=== PATIENT | male | born 1980 | race Caucasian/White ===

== ENCOUNTER → 2021-10-19 | Outpatient (CLI) | payer SELFPAY ==
[2021-10-19 14:40] LABS: Erythrocyte Sedimentation Rate 6 mm/hr (0-20)
[2021-10-19 15:01] LABS: Vitamin B12 763 pg/mL (211-911); Vitamin D,25 Hydroxy 28.6 ng/mL
[2021-10-19 15:17] LABS: ALB/GLOB Ratio 1.2 RATIO (0.9-2.4); AST(SGOT) 17 U/L (15-37); Alanine Aminotransfer ALT/SGPT 31 U/L (16-61); Albumin, Serum 4.3 g/dL (3.2-5.0); Alkaline Phosphatase 77 U/L (45-117); Anion Gap 5 (5-15); BUN 16 mg/dL (7-18); BUN/Creat Ratio 18.6 RATIO (10-20); CPK Total, Creatine Kinase 155 U/L (39-308); CRP < 2.90 mg/L (0.0-3.0); Chloride 107 mmol/L (98-107); Creatinine, Serum 0.86 mg/dL (0.70-1.30); EST Glomerular Filtration Rate 105 mL/min (>60); Est Glom Filt Rate - Afr Amer 128 mL/min (>60); Globulin 3.5 g/dL (2.2-4.2); Glucose 95 mg/dL (74-106); LDH 144 U/L (87-241); Potassium 3.8 mmol/L (3.5-5.1); Protein, Total 7.8 g/dL (6.4-8.2); Sodium Level 139 mmol/L (136-145); Thyroid Stim Hormone (TSH) 0.56 uIU/mL (0.358-3.74)
[2021-10-23 11:26] LABS: Endomysial Antibody IgA Negative (Negative)
[2021-10-23 13:07] LABS: Anti-Centromere B Ab <0.2 AI (0.0-0.9); Anti-Chromatin <0.2 AI (0.0-0.9); Anti-Jo <0.2 AI (0.0-0.9); Anti-Scleroderma-70 AB <0.2 AI (0.0-0.9); Anti-ribosomal P Antibodies <0.2 AI (0.0-0.9); RNP Ab <0.2 AI (0.0-0.9); SJOGREN'S Anti-SS-A test < 0.2 AI (0.0-0.9); SJOGREN'S Anti-SS-B test < 0.2 AI (0.0-0.9); Smith Ab <0.2 AI (0.0-0.9); Smith/RNP Ab <0.2 AI (0.0-0.9)
[2021-10-23 20:02] LABS: Anti-dsDNA Ab <1 IU/mL (0-9)
[2021-10-23 20:08] LABS: Immunoglobulin A 125 mg/dL (90-386); t-Transglutaminase IgA <2 U/mL (0-3)
[2021-10-27 10:08] LABS: Albumin 4.2 g/dL (2.9-4.4); Alpha-1-Globulins 0.2 g/dL (0.0-0.4); Alpha-2-Globulins 0.6 g/dL (0.4-1.0); Cytoplasmic Ab (C-ANCA) <1:20 titer (Neg:<1:20); Gamma Globulin 1.4 g/dL (0.4-1.8); Immunoglobulin A 127 mg/dL (90-386); Immunoglobulin G 1319 mg/dL (603-1613); Immunoglobulin M 116 mg/dL (20-172); PROEL- TOTAL PROTEIN 7.3 g/dL (6.0-8.5)
[2021-10-27 13:56] LABS: Immunoglobulin E 79 IU/mL (6-495); Perinuclear Ab (P-ANCA) <1:20 titer (Neg:<1:20)
== END | disposition home or self-care (01) ==
PROVIDERS: PCP Family Medicine; Referring Provider Internal Medicine Gastroenterology; Visit Provider Internal Medicine Gastroenterology
DX: R10.9 Unspecified abdominal pain (principal)
CPT/HCPCS: 36415; 80053; 82306; 82550; 82607; 82784; 82785; 83036; 83516; 83615; 84165; 84443; 85652; 86038; 86140; 86225; 86235; 86255; 86256; 86334; 86340

== ENCOUNTER → 2021-10-31 | Outpatient (CLI) | payer OTHER, SELFPAY ==
[2021-11-02 18:34] LABS: Giardia Lamblia, Stool EIA Negative (Negative)
[2021-11-03 19:09] LABS: Calprotectin, Stool 26 ug/g (0-120)
== END | disposition home or self-care (01) ==
LOC: LABSPEC 13:45
PROVIDERS: PCP Family Medicine; Referring Provider Internal Medicine Gastroenterology; Visit Provider Internal Medicine Gastroenterology
DX: K58.9 Irritable bowel syndrome, unspecified (principal)
CPT/HCPCS: 83630; 83993; 87177; 87209; 87329; 87506